=== PATIENT | male | born 1970 | race American Indian/Alaskan Native ===

== ENCOUNTER 2016-10-30 11:07 | Inpatient (IN) | payer MEDICARE ==
--- NOTE | 2016-10-30 12:39 | Emergency Department Report ---
Chief Complaint: Syncope Stated Complaint: PREV PASS OUT/LT LEG PAIN Time Seen by Provider: 10/30/16 12:34 - HPI History of Present Illness: 46-year-old -[place] male comes in for passing out at home. Patient reports that he thinks he was out for half an hour. He reports no past medical history. He also complains of left leg pain 1 month. Denies trauma to the leg. - Exam Vital Signs: Vital Signs 10/30/16 11:59 Temperature 98.1 F Pulse Rate 65 Respiratory 18 Rate Blood Pressure 139/102 O2 Sat by Pulse 99 Oximetry Physical Exam: Vital sign bp repeated 143/97. Patient's alert and oriented 3. Cardiovascular S1-S2 regular rate and rhythm respiratory clear to auscultation bilateral MSE screening note: Focused history and physical exam performed. Due to findings the following was ordered: Patient seen by the [facility] provider. He'll be seen in the main ER. ED Disposition for MSE Condition: Stable
[2016-10-30 13:12] LABS: Hematocrit 42.2 % (35.5-45.6); Hemoglobin 13.9 gm/dl (11.8-15.2); Mean Corpuscular HGB Conc 33 % (32-34); Mean Corpuscular Hemoglobin 30 pg (28-32); Mean Corpuscular Volume 91 fl (84-94); Platelet Count 225 K/mm3 (140-440); Red Blood Count 4.66 M/mm3 (3.65-5.03); Red Cell Distribution Width 14.5 % (13.2-15.2); White Blood Count 4.9 K/mm3 (4.5-11.0)
[2016-10-30 13:33] LABS: Anion Gap 17 mmol/L; BUN/Creatinine Ratio 18.75; Blood Urea Nitrogen 15 mg/dL (9-20); Calcium 9.2 mg/dL (8.4-10.2); Carbon Dioxide 26 mmol/L (22-30); Chloride 103.4 mmol/L (98-107); Glucose 96 mg/dL (75-100); Potassium 4.5 mmol/L (3.6-5.0); Sodium 142 mmol/L (137-145)
--- NOTE | 2016-10-30 20:46 | Emergency Department Report ---
ED Syncope HPI - General Chief Complaint: Syncope Stated Complaint: PREV PASS OUT/LT LEG PAIN Time Seen by Provider: 10/30/16 12:34 Source: patient Exam Limitations: no limitations - History of Present Illness Initial Comments: 46-year-old male with past medical history asthma presents to the hospital complains of multiple syncopal episodes in the past 2 months including today. Patient states he was walking, had no preceding symptoms, then passed out for approximately 30 minutes. Patient denies any symptoms at this time. He denies headache blurred vision, chest pain, shortness of breath, palpitations, abdominal pain, nausea, vomiting, diarrhea, melena, hematochezia, focal weakness or numbness. Patient denies tongue laceration/biting or urinary incontinence. Patient has had at least 3 episodes of the past 2 months. His understanding after talking to his primary care doctor that this is caused by nutrient deficits and occurs when his potassium is low. Patient also complains of intermittent sharp pain to medial left thigh for the past one month but denies recent travel, calf tenderness, leg asymmetry, or history of PE/DVT. - Related Data Allergies/Adverse Reactions: Allergies Penicillins Allergy (Verified 02/07/16 14:58) Unknown Home Medications: Ambulatory Orders Loratadine [Claritin] 10 mg PO DAILY #30 tablet 11/05/15 Prednisone [predniSONE 10 mg (6-Day Pack, 21 Tabs)] 10 mg PO .TAPER #1 tab.ds.pk 11/05/15 hydrOXYzine HCL [Atarax] 25 mg PO Q6HR PRN #20 tablet 11/05/15 ED Review of Systems ROS: Stated complaint: PREV PASS OUT/LT LEG PAIN Other details as noted in HPI Comment: All other systems reviewed and negative Other: Constitutional: No fevers chills Eyes: No eye pain visual changes ENT: No ear pain or throat pain Neck: Denies pain Respiratory: Denies cough wheezing shortness of breath Cardiovascular: Denies chest pain, palpitations, syncope GI: Denies abdominal pain, nausea, vomiting, diarrhea : Denies dysuria Musculoskeletal: Denies back pain Skin: Denies rash, lesions, erythema Neurologic: Denies headache, numbness, weakness Psychiatric: Denies suicidal ideation, hallucinations ED Past Medical Hx - Past Medical History Hx Headaches / Migraines: Yes Hx Asthma: Yes - Surgical History Additional Surgical History: finger - Social History Smoking Status: Current Every Day Smoker Substance Use Type: None - Medications Home Medications: Home Medications Medication Instructions Recorded Confirmed Last Taken Type Loratadine [Claritin] 10 mg PO DAILY #30 tablet 11/05/15 Unknown Rx Prednisone [predniSONE 10 mg 10 mg PO .TAPER #1 tab.ds.pk 11/05/15 Unknown Rx (6-Day Pack, 21 Tabs)] hydrOXYzine HCL [Atarax] 25 mg PO Q6HR PRN #20 tablet 11/05/15 Unknown Rx ED Physical Exam - General Limitations: No Limitations - Other Other exam information: General: No limitations, patient is alert in no acute distress Head exam: Atraumatic, normocephalic Eyes exam: Normal appearance, pupils equal reactive to light, extraocular movements intact ENT: Moist mucous membrane, normal oropharynx Neck exam: Normal inspection, full range of motion, no meningismus nontender Respiratory exam: Clear to auscultation bilateral, no wheezes, rales, crackles Cardiovascular: Normal rate and rhythm, normal heart sounds Abdomen: Soft, nondistended, and nontender, with normal bowel sounds, no rebound, or guarding Extremity: Full range of motion normal inspection no deformity, no calf tenderness or edema. 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 Will admit for cardiac workup after ED workup complete ED Medical Decision Making - Lab Data Result diagrams: 10/30/16 12:59 10/30/16 12:59 Lab Results 10/30/16 10/30/16 10/30/16 Range/Units 12:59 12:59 20:47 WBC 4.9 (4.5-11.0) K/mm3 RBC 4.66 (3.65-5.03) M/mm3 Hgb 13.9 (11.8-15.2) gm/dl Hct 42.2 (35.5-45.6) % MCV 91 (84-94) fl MCH 30 (28-32) pg MCHC 33 (32-34) % RDW 14.5 (13.2-15.2) % Plt Count 225 (140-440) K/mm3 D-Dimer < 135 (0-234) ng/mlDDU Sodium 142 (137-145) mmol/L Potassium 4.5 (3.6-5.0) mmol/L Chloride 103.4 (98-107) mmol/L Carbon Dioxide 26 (22-30) mmol/L Anion Gap 17 mmol/L BUN 15 (9-20) mg/dL Creatinine 0.8 (0.8-1.5) mg/dL Estimated GFR > 60 ml/min BUN/Creatinine Ratio 18.75 % Glucose 96 (75-100) mg/dL Calcium 9.2 (8.4-10.2) mg/dL Urine Opiates Screen Urine Methadone Screen Ur Barbiturates Screen Ur Phencyclidine Scrn Ur Amphetamines Screen U Benzodiazepines Scrn Urine Cocaine Screen U Marijuana (THC) Screen Drugs of Abuse Note 10/30/16 Range/Units Unknown WBC (4.5-11.0) K/mm3 RBC (3.65-5.03) M/mm3 Hgb (11.8-15.2) gm/dl Hct (35.5-45.6) % MCV (84-94) fl MCH (28-32) pg MCHC (32-34) % RDW (13.2-15.2) % Plt Count (140-440) K/mm3 D-Dimer (0-234) ng/mlDDU Sodium (137-145) mmol/L Potassium (3.6-5.0) mmol/L Chloride (98-107) mmol/L Carbon Dioxide (22-30) mmol/L Anion Gap mmol/L BUN (9-20) mg/dL Creatinine (0.8-1.5) mg/dL Estimated GFR ml/min BUN/Creatinine Ratio % Glucose (75-100) mg/dL Calcium (8.4-10.2) mg/dL Urine Opiates Screen Presumptive negative Urine Methadone Screen Presumptive negative Ur Barbiturates Screen Presumptive negative Ur Phencyclidine Scrn Presumptive negative Ur Amphetamines Screen Presumptive negative U Benzodiazepines Scrn Presumptive negative Urine Cocaine Screen Presumptive negative U Marijuana (THC) Screen Presumptive negative Drugs of Abuse Note Disclamer - EKG Data -: EKG Interpreted by Me (rate 71 inc rbbb) - EKG Data When compared to previous EKG there are: no significant change (compared to 06/2014) - Radiology Data Radiology results: report reviewed (CT head: No acute findings) - Medical Decision Making D-dimer is negative. CT and labs are unremarkable. We'll admit to the hospital for further cardiac evaluation given repeated syncopal episodes - Differential Diagnosis PE, heart abnormality, arrhythmia, intracranial abnormality, seizure Critical Care Time: No Critical care attestation.: If time is entered above; I have spent that time in minutes in the direct care of this critically ill patient, excluding procedure time. ED Disposition Clinical Impression: Syncope Disposition: OP ADMITTED IP TO THIS HOSP Is pt being admited?: Yes Condition: Stable Time of Disposition: 22:12 (Dr Rice/hosp)
[2016-10-30 21:11] LABS: Urine Drugs of Abuse Note Disclamer
[2016-10-30] MEDS ORDERED: ZOFRAN IV PRN (23:02)
[2016-10-30] MEDS ORDERED: TYLENOL PO PRN (23:02)
[2016-10-30] MEDS ORDERED: PERCOCET 5/325 PO PRN (23:02)
[2016-10-30] MEDS ORDERED: DULCOLAX PR PRN (23:02)
[2016-10-30] MEDS ORDERED: MILK OF MAGNESIA PO PRN (23:02)
--- NOTE | 2016-10-30 23:05 | History and Physical Report ---
History of Present Illness Date of examination: 10/30/16 Date of admission: 10/30/16 22:12 History of present illness: 46-year-old man history of migraine, asthma comes emergency room with complaints of recurrent syncope. Patient stated yesterday he felt dizzy and passed out for about 30 minutes. This is the second time passing out since September. He been having recurrent syncope since 2004, usually passed out at least 2 times a year. He is a stress test in 2004, never had monitor. Patient denies chest pain, palpitation, shortness of breath, cough, abdominal pain, hematochezia, dysuria, frequency, focal weakness, dysarthria, fever chills , polydipsia polyuria, hot or cold intolerance, easy bruisability, or rash or bleeding from mucosal membrane, rhinorrhea, epistaxis, earache, tinnitus, blurry vision, eye discharge, anxiety, depression. Other review of systems negative PAST SURGICAL HISTORY: Surgery on toe SOCIAL HISTORY: Denies alcohol, admits to tobacco, no drugs FAMILY HISTORY: Hypertension Medications and Allergies Allergies Allergy/AdvReac Type Severity Reaction Status Date / Time Penicillins Allergy Unknown Verified 02/07/16 14:58 Home Medications Medication Instructions Recorded Confirmed Last Taken Type Loratadine [Claritin] 10 mg PO DAILY #30 tablet 11/05/15 Unknown Rx Prednisone [predniSONE 10 mg 10 mg PO .TAPER #1 tab.ds.pk 11/05/15 Unknown Rx (6-Day Pack, 21 Tabs)] hydrOXYzine HCL [Atarax] 25 mg PO Q6HR PRN #20 tablet 11/05/15 Unknown Rx Exam - Physical Exam Narrative exam: Gen. appearance: Patient lying in bed, no apparent distress HEENT: Normocephalic, atraumatic, pupils equally round and reactive to light, extraocular movement intact, and no sclericterus,. No JVD or thyromegaly or nodule,neck supple, no carotid bruit ,mucous membranes moist, no exudate or erythema Heart: S1, S2, regular rate and rhythm Lungs: Clear to auscultation bilaterally, breathing comfortable Abdomen: Positive bowel sounds, nontender, nondistended, no organomegaly Extremity: No edema, cyanosis, clubbing Skin: No rash, nodules, warm, dry Neuro: Oriented 3, cranial nerves II-12 intact, speech is fluent, motor and sensory intact - Constitutional Vitals: Temp Pulse Resp BP Pulse Ox 98 F 77 16 139/91 100 10/30/16 19:54 10/30/16 19:54 10/30/16 19:54 10/30/16 19:54 10/30/16 19:54 Results - Labs CBC & Chem 7: 10/30/16 12:59 10/30/16 12:59 - Imaging and Cardiology EKG: image reviewed CT Scan - head: report reviewed Assessment and Plan Current syncope Asthma Migraine Admits medicine Check cardiac enzymes, orthostatics, stress test Consult cardiology, start DVT prophylaxis
--- NOTE | 2016-10-30 23:23 | Admit Criteria Form ---
Admission Criteria Documentation: SYNCOPE Clinical Indications for Admission to Inpatient Care ( Place 'X' for any and all applicable criteria): Admission is indicated for syncope and ANY ONE of the following (1)(2)(3)(4)(5) (6)(7) : [ X]I. Inpatient admission required rather than observation care (Also use Syncope: Observation Care Criteria as appropriate) because of ANY ONE of the following: [ ]a) Hemodynamic instability that is severe or persistent [ ]b) Cardiac arrhythmias of immediate concern identified or strongly suspected (eg, needs electrophysiologic study) [ ]c) Acute coronary syndrome identified (Also use Myocardial Infarction or Angina Criteria form ) [ ]d) Structural cardiac disorder (eg, aortic stenosis) suspected as cause that requires immediate correction [ ]e) Respiratory symptoms (eg, dyspnea, tachypnea) that are severe or persistent [ ]f) Neurologic signs or symptoms that are severe or persistent ( eg, stroke, seizures, altered mental status) [ ]g) Severe electrolyte abnormalities requiring inpatient care [ ]h) Supplemental oxygen or respiratory treatment for over 24 hrs that are performable only in acute inpatient setting [ ]i) IV fluid to replace significant ongoing (eg, for over 24 hrs ) losses (>3 L/m2 per day) [ ]j) Continuous intravenous infusion of anticoagulation, platelet inhibitor, vasoactive, or antiarrhythmic medication(15)(16) [ ]k) Pulmonary artery catheter monitoring [ ]l) Temporary pacemaker placement(17) [ ]m) Emergent cardioversion(18) [X ]n) Other conditions, treatment or monitoring requiring inpatient admission [ ]II. Suspicion of imminently dangerous cause (eg, rare causes like pericardial tamponade, pulmonary embolism) [ ]III. Syncope causing severe injury requiring hospitalization Extended stay beyond goal length of stay may be needed for(28) [ ]a) Dangerous arrhythmia(15)(23)(27)(29) [ ]b) Myocardial ischemia [ ]c) Seizure disorder [ ]d) Syncope-related injuries The original [employer] content created by [employer] has been revised. The portions of the content which have been revised are identified through the use of italic text or in bold, and [employer] has neither reviewed nor approved the modified material. All other unmodified content is copyright [employer] [facility] [employer]. Please see references footnoted in the original [facility] edition 2016 Admission Criteria Met: Yes
[2016-10-31 00:22] LABS: Creatine Kinase MB 2.4 ng/mL (0.0-4.0)
[2016-10-31 00:23] LABS: Creatine Kinase 135 units/L (55-170)
[2016-10-31 03:45] LABS: Basophils % (Auto) 0.7 % (0.0-1.8); Eosinophils % (Auto) 3.9 % (0.0-4.3); Hematocrit 43.1 % (35.5-45.6); Hemoglobin 13.9 gm/dl (11.8-15.2); Mean Corpuscular HGB Conc 32 % (32-34); Mean Corpuscular Hemoglobin 29 pg (28-32); Mean Corpuscular Volume 91 fl (84-94); Platelet Count 231 K/mm3 (140-440); Red Blood Count 4.74 M/mm3 (3.65-5.03); Red Cell Distribution Width 14.5 % (13.2-15.2); White Blood Count 7.1 K/mm3 (4.5-11.0)
[2016-10-31 03:58] LABS: Anion Gap 18 mmol/L; BUN/Creatinine Ratio 23.75; Blood Urea Nitrogen 19 mg/dL (9-20); Calcium 8.9 mg/dL (8.4-10.2); Carbon Dioxide 24 mmol/L (22-30); Chloride 104.2 mmol/L (98-107); Glucose 94 mg/dL (75-100); Potassium 4.3 mmol/L (3.6-5.0); Sodium 142 mmol/L (137-145)
[2016-10-31 06:36] LABS: Creatine Kinase 122 units/L (55-170)
[2016-10-31] MEDS ORDERED: LEXISCAN IV ONE ×2 (08:02→08:16)
--- NOTE | 2016-10-31 11:58 | Consultation ---
History of Present Illness Consult date: 10/31/16 Medications and Allergies Allergies Allergy/AdvReac Type Severity Reaction Status Date / Time Penicillins Allergy Unknown Verified 02/07/16 14:58 Home Medications Medication Instructions Recorded Confirmed Last Taken Type Loratadine [Claritin] 10 mg PO DAILY #30 tablet 11/05/15 Unknown Rx Prednisone [predniSONE 10 mg 10 mg PO .TAPER #1 tab.ds.pk 11/05/15 Unknown Rx (6-Day Pack, 21 Tabs)] hydrOXYzine HCL [Atarax] 25 mg PO Q6HR PRN #20 tablet 11/05/15 Unknown Rx Active Meds: Active Medications Acetaminophen (Tylenol) 650 mg PO Q4H PRN PRN Reason: Pain MILD(1-3)/Fever >100.5/JONES Bisacodyl (Dulcolax) 10 mg CA QDAY PRN PRN Reason: Constipation unrelieved by MOM Magnesium Hydroxide (Milk Of Magnesia) 30 ml PO Q4H PRN PRN Reason: Constipation Ondansetron HCl (Zofran) 4 mg IV Q8H PRN PRN Reason: N/V unrelieved by Reglan Oxycodone/Acetaminophen (Percocet 5/325) 1 tab PO Q6H PRN PRN Reason: Pain, Moderate (4-6) Physical Examination Vital Signs Temp Pulse Resp BP Pulse Ox 98.1 F 65 18 139/102 99 10/30/16 11:59 10/30/16 11:59 10/30/16 11:59 10/30/16 11:59 10/30/16 11:59 Results 10/31/16 02:55 10/31/16 02:55 Cardiac Enzymes 10/30/16 10/31/16 Range/Units 23:33 05:42 CK-MB (CK-2) 2.4 2.0 (0.0-4.0) ng/mL CBC 10/31/16 Range/Units 02:55 WBC 7.1 (4.5-11.0) K/mm3 RBC 4.74 (3.65-5.03) M/mm3 Hgb 13.9 (11.8-15.2) gm/dl Hct 43.1 (35.5-45.6) % Plt Count 231 (140-440) K/mm3 Lymph # 3.0 (1.2-5.4) K/mm3 [place] # 0.8 (0.0-0.8) K/mm3 Eos # 0.3 (0.0-0.4) K/mm3 Baso # 0.1 (0.0-0.1) K/mm3 Comprehensive Metabolic Panel 10/31/16 Range/Units 02:55 Sodium 142 (137-145) mmol/L Potassium 4.3 (3.6-5.0) mmol/L Chloride 104.2 (98-107) mmol/L Carbon Dioxide 24 (22-30) mmol/L BUN 19 (9-20) mg/dL Creatinine 0.8 (0.8-1.5) mg/dL Glucose 94 (75-100) mg/dL Calcium 8.9 (8.4-10.2) mg/dL Assessment and Plan full consult dictated echo staff not available today stress mpi wnl check carotid d/c if tte ok (prob tomorrow)
--- NOTE | 2016-10-31 12:47 | Treadmill Report ---
NUCLEAR PERFUSION SCAN REFERRING PHYSICIAN: Hospitalist service. PROTOCOL: The patient was brought to the stress lab in a postabsorptive state, given 10 mCi of technetium 99m at rest. The patient underwent rest imaging. The patient underwent Lexiscan stress test. At peak stress, the patient was given 26 mCi of technetium 99m. Shortly thereafter, the patient underwent stress imaging. Raw imaging reveals mild GI artifact. No significant motion artifact. SPECT imaging examined carefully in the horizontal long axis, vertical long axis, and short axis views. There is normal homogenous uptake of radioisotope in all reported segments. No evidence of a significant fixed or reversible perfusion defects suggestive of prior infarction or ischemia. Gated wall motion reveals normal systolic thickening, calculated ejection fraction of 51%. No TID. CONCLUSIONS: 1. Normal myocardial perfusion scan without evidence of active ischemia or prior infarction. 2. Normal left ventricular systolic performance without evidence of transient ischemic dilatation or stress-induced segmental wall motion abnormalities. JOB# [id number] MALINA/VENUS
--- NOTE | 2016-10-31 15:50 | Progress Note ---
Assessment and Plan Assessment and plan: 1. Syncope likely vasovagal, MPI wnl, fup TTE tomorrow check carotid dopplers 2. Asthma stable 3 Hx of Migraine JONES not in exacerbation Hospitalist Physical - Constitutional Vitals: Temp Pulse Resp BP Pulse Ox 98.3 F 67 18 107/77 95 10/31/16 15:44 10/31/16 15:44 10/31/16 15:44 10/31/16 15:44 10/31/16 15:44 Results - Labs CBC & Chem 7: 10/31/16 02:55 10/31/16 02:55 Labs: Laboratory Last Values WBC 7.1 K/mm3 (4.5-11.0) 10/31/16 02:55 RBC 4.74 M/mm3 (3.65-5.03) 10/31/16 02:55 Hgb 13.9 gm/dl (11.8-15.2) 10/31/16 02:55 Hct 43.1 % (35.5-45.6) 10/31/16 02:55 MCV 91 fl (84-94) 10/31/16 02:55 MCH 29 pg (28-32) 10/31/16 02:55 MCHC 32 % (32-34) 10/31/16 02:55 RDW 14.5 % (13.2-15.2) 10/31/16 02:55 Plt Count 231 K/mm3 (140-440) 10/31/16 02:55 Lymph % (Auto) 42.6 % (13.4-35.0) H 10/31/16 02:55 [place] % (Auto) 11.6 % (0.0-7.3) H 10/31/16 02:55 Eos % (Auto) 3.9 % (0.0-4.3) 10/31/16 02:55 Baso % (Auto) 0.7 % (0.0-1.8) 10/31/16 02:55 Lymph # 3.0 K/mm3 (1.2-5.4) 10/31/16 02:55 [place] # 0.8 K/mm3 (0.0-0.8) 10/31/16 02:55 Eos # 0.3 K/mm3 (0.0-0.4) 10/31/16 02:55 Baso # 0.1 K/mm3 (0.0-0.1) 10/31/16 02:55 Seg Neutrophils % 41.2 % (40.0-70.0) 10/31/16 02:55 Seg Neutrophils # 2.9 K/mm3 (1.8-7.7) 10/31/16 02:55 D-Dimer < 135 ng/mlDDU (0-234) 10/30/16 20:47 Sodium 142 mmol/L (137-145) 10/31/16 02:55 Potassium 4.3 mmol/L (3.6-5.0) 10/31/16 02:55 Chloride 104.2 mmol/L (98-107) 10/31/16 02:55 Carbon Dioxide 24 mmol/L (22-30) 10/31/16 02:55 Anion Gap 18 mmol/L 10/31/16 02:55 BUN 19 mg/dL (9-20) 10/31/16 02:55 Creatinine 0.8 mg/dL (0.8-1.5) 10/31/16 02:55 Estimated GFR > 60 ml/min 10/31/16 02:55 BUN/Creatinine Ratio 23.75 % 10/31/16 02:55 Glucose 94 mg/dL (75-100) 10/31/16 02:55 Calcium 8.9 mg/dL (8.4-10.2) 10/31/16 02:55 Total Creatine Kinase 122 units/L (55-170) 10/31/16 05:42 CK-MB (CK-2) 2.0 ng/mL (0.0-4.0) 10/31/16 05:42 CK-MB (CK-2) Rel Index 1.6 (0-4) 10/31/16 05:42 Troponin T < 0.010 ng/mL (0.00-0.029) 10/31/16 05:42 Urine Opiates Screen Presumptive negative 10/30/16 Unknown Urine Methadone Screen Presumptive negative 10/30/16 Unknown Ur Barbiturates Screen Presumptive negative 10/30/16 Unknown Ur Phencyclidine Scrn Presumptive negative 10/30/16 Unknown Ur Amphetamines Screen Presumptive negative 10/30/16 Unknown U Benzodiazepines Scrn Presumptive negative 10/30/16 Unknown Urine Cocaine Screen Presumptive negative 10/30/16 Unknown U Marijuana (THC) Screen Presumptive negative 10/30/16 Unknown Drugs of Abuse Note Disclamer 10/30/16 Unknown
--- NOTE | 2016-11-01 00:30 | Consultation ---
REFERRING PHYSICIAN: Addie Rice MD REASON FOR CONSULTATION: Advice and opinion regarding questionable syncope. HISTORY OF PRESENT ILLNESS: The patient is a very pleasant 46-year-old gentleman with a history of migraine and recurrent syncope, has several episodes a year. Denies any chest pain or shortness of breath. States he does feel funny beforehand. There is prodrome present. He feels better since he has been in the hospital. No fevers, chills, nausea, vomiting. No recent illness. History of foot surgery. No cardiac history. Unclear if he has had a workup in the past. SOCIAL HISTORY: Does smoke, nondrinker, no drugs. FAMILY HISTORY: Hypertension. No premature family history of sudden cardiac . ALLERGIES: ALLERGIC TO PENICILLIN. MEDICATIONS: Inpatient and outpatient medications reviewed. PHYSICAL EXAMINATION: VITAL SIGNS: Telemetry is unremarkable, sinus rhythm in 60s. Blood pressures 120s/70s. He is afebrile. O2 sat is 98% on room air. GENERAL: This is a middle-aged male in no apparent distress, oriented x 3. HEENT: Sclerae are anicteric. PERRL. NECK: Supple, no masses. CHEST: Clear to auscultation bilaterally. Good air movement. CARDIOVASCULAR: Regular rate and rhythm. Normal S1, S2. ABDOMEN: Soft, nontender, nondistended. Normoactive bowel sounds in 4 quadrants. No mass or bruits. EXTREMITIES: No cyanosis, clubbing, edema. Good peripheral pulses. SKIN: Warm, dry, and intact. No rashes. LABORATORY DATA: EKG reveals normal sinus rhythm. First 2 sets of troponins are negative. WBC ____, hemoglobin 13.9, hematocrit 43.1, platelets 231. D-dimer is negative. BMP is normal. UDS is normal. Had a stress thallium this morning, which revealed no ischemia or prior infarction, normal LV function, no ____. ASSESSMENT: In summary, the patient is a pleasant 46-year-old gentleman: 1. Recurrent syncope with prodrome unclear etiology. Telemetry thus far unremarkable. Stress test is normal. Follow up echocardiogram. We will check orthostatics stable from a cardiac standpoint at this point. Thank you for this consultation. We will be happy following along with you. JOB# [id number] SBM/NTS
--- NOTE | 2016-11-01 11:45 | Progress Note ---
Assessment and Plan await tte stress mpi wnl check carotid stable cv status will need outpt neuro eval for syncope of unknown etiology Subjective Date of service: 11/01/16 Interval history: no complaints very pleasant Objective Vital Signs Temp Pulse Pulse Resp BP Pulse Ox 11/01/16 10:23 63 11/01/16 10:00 18 11/01/16 07:37 97.5 F L 64 18 113/79 95 11/01/16 04:54 98.2 F 84 18 110/68 100 11/01/16 00:32 97.6 F 74 20 124/68 96 10/31/16 20:14 98.2 F 64 18 126/82 93 10/31/16 19:42 62 10/31/16 15:44 98.3 F 67 18 107/77 95 10/31/16 12:07 58 L - Imaging and Cardiology EKG: image reviewed
[2016-11-01 12:36] VITALS: BP 116/82
--- NOTE | 2016-11-01 13:37 | Discharge Summary ---
Providers - Providers Date of Admission: 10/30/16 22:12 Attending physician: TESSIE FREEMAN MD 10/30/16 22:15 Consult to Physician [CONS] Urgent Consulting Provider: JESS BERNARDO Reason For Exam: recurrent syncope Notified:: y Primary care physician: DARSHAN GARCIA Hospitalization Condition: Stable Core Measure Documentation - Palliative Care Palliative Care/ Comfort Measures: Not Applicable Exam - Constitutional Vitals: Temp Pulse Resp BP Pulse Ox 97.3 F L 62 18 116/82 96 11/01/16 12:35 11/01/16 12:35 11/01/16 12:35 11/01/16 12:35 11/01/16 12:35 Plan Follow up with: DARSHAN GARCIA MD [Primary Care Provider] - 7 Days BLADIMIR PADILLA MD [Staff Physician] - 7 Days
--- NOTE | 2016-11-02 18:15 | Cat Scan Report ---
FINAL REPORT EXAM: CT HEAD/BRAIN WO CON HISTORY: recurrent syncope TECHNIQUE: CT imaging acquired through the head without intravenous contrast. Transaxial reformations are provided. PRIORS: None. FINDINGS: Mild parenchymal volume loss is above what would normally be expected in a patient of this age. No intraparenchymal or extra-axial mass, hemorrhage, or mass effect. [place] and white-matter differentiation is within normal limits. Normal spherical shape of the globes. Paranasal sinuses and mastoid air cells are clear. No skull or facial fracture visualized. IMPRESSION: No acute intracranial abnormality. Mild parenchymal volume loss is above would normally be expected in a patient of this age. Follow-up MRI and possible neurology consultation are suggested.
== END 2016-11-01 15:06 | disposition home or self-care (01) | DRG 312 ==
LOC: ED 11:07 → 4A 22:12
PROVIDERS: ADMIT Internal Medicine; ATTEND Internal Medicine
DX: R55 Syncope and collapse (principal); J45.909 Unspecified asthma, uncomplicated; G43.909 Migraine, unspecified, not intractable, without status migrainosus; Z88.0 Allergy status to penicillin; Z82.49 Family history of ischemic heart disease and other diseases of the circulatory system
CPT/HCPCS: 36415; 70450; 78452; 80048; 80307; 82550; 82553; 84484; 85025; 85027; 85379; 93005; 93010; 93017; 93880; 99406; A9502; J2785

== ENCOUNTER 2017-07-30 15:00 | Emergency (ER) | payer MEDICARE ==
[2017-07-30 15:23] VITALS: BP 143/97
[2017-07-30] MEDS ORDERED: TYLENOL #3 PO ONE (18:06)
--- NOTE | 2017-07-30 18:10 | Emergency Department Report ---
ED ENT HPI - General Chief complaint: Dental/Oral Stated complaint: TOOTHACHE Source: patient Mode of arrival: Ambulatory Limitations: No Limitations - Related Data Previous Rx's Medication Instructions Recorded Last Taken Type Acetaminophen/Codeine [Tylenol 1 tab PO Q6H PRN #8 tab 07/30/17 Unknown Rx /Codeine # 3 tab] Clindamycin [Clindamycin CAP] 300 mg PO Q6H #28 capsule 07/30/17 Unknown Rx Ibuprofen [Motrin] 800 mg PO Q8HR PRN #30 tablet 07/30/17 Unknown Rx Allergies Allergy/AdvReac Type Severity Reaction Status Date / Time Penicillins Allergy Unknown Verified 02/07/16 14:58 ED Dental HPI - General Chief complaint: Dental/Oral Stated complaint: TOOTHACHE Source: patient Mode of arrival: Ambulatory Limitations: No Limitations - Related Data Previous Rx's Medication Instructions Recorded Last Taken Type Acetaminophen/Codeine [Tylenol 1 tab PO Q6H PRN #8 tab 07/30/17 Unknown Rx /Codeine # 3 tab] Clindamycin [Clindamycin CAP] 300 mg PO Q6H #28 capsule 07/30/17 Unknown Rx Ibuprofen [Motrin] 800 mg PO Q8HR PRN #30 tablet 07/30/17 Unknown Rx Allergies Allergy/AdvReac Type Severity Reaction Status Date / Time Penicillins Allergy Unknown Verified 02/07/16 14:58 ED Review of Systems ROS: Stated complaint: TOOTHACHE Other details as noted in HPI ED Past Medical Hx - Past Medical History Hx Headaches / Migraines: Yes Hx Asthma: Yes - Surgical History Additional Surgical History: finger - Social History Smoking Status: Current Every Day Smoker Substance Use Type: None - Medications Home Medications: Home Medications Medication Instructions Recorded Confirmed Last Taken Type Acetaminophen/Codeine [Tylenol 1 tab PO Q6H PRN #8 tab 07/30/17 Unknown Rx /Codeine # 3 tab] Clindamycin [Clindamycin CAP] 300 mg PO Q6H #28 capsule 07/30/17 Unknown Rx Ibuprofen [Motrin] 800 mg PO Q8HR PRN #30 tablet 07/30/17 Unknown Rx ED Physical Exam - General Limitations: No Limitations ED Course Vital Signs 07/30/17 15:20 Temperature 98.3 F Pulse Rate 70 Respiratory 20 Rate Blood Pressure 143/97 O2 Sat by Pulse 98 Oximetry ED Medical Decision Making - Medical Decision Making A/P: dental cavities, toothache, 1- Motrin when necessary, clindamycin course, Orajel when necessary, Peridex mouthwash daily basis, short course codeine when necessary 2- I provided patient with information for multiple dental clinics to follow up and stressed the importance of dental follow-up as he has a dental cavity that requires dental fixation or instrumentation 3- no clinical signs of facial abscess, no Akira's angina, no induration or cellulitis of floor of mouth or tongue 4- patient able to tolerate by mouth before discharge 5- no signs of facial infection. Advised patient that if he does not take antibiotics with follow-up with a dentist as soon as possible that a can result in potentially serious or dangerous infection to develop in jaw or face. Patient states that he understood these instructions. I advised patient to return to the ED for any persistent unrelenting nausea or vomiting fever or chills or headaches. Critical care attestation.: If time is entered above; I have spent that time in minutes in the direct care of this critically ill patient, excluding procedure time. ED Disposition Clinical Impression: Dental cavity, Toothache Disposition: TO HOME OR SELFCARE Is pt being admited?: No Does the pt Need Aspirin: No Condition: Stable Instructions: Dental Caries (ED), Toothache (ED) Prescriptions: Acetaminophen/Codeine [Tylenol /Codeine # 3 tab] 1 tab PO Q6H PRN #8 tab PRN Reason: Pain Clindamycin [Clindamycin CAP] 300 mg PO Q6H #28 capsule Ibuprofen [Motrin] 800 mg PO Q8HR PRN #30 tablet PRN Reason: Toothache Referrals: [facility] [place] [Outside] - 3-5 Days Forms: Work/School Release Form(ED) Time of Disposition: 18:07
== END 2017-07-30 18:27 | disposition home or self-care (01) ==
LOC: ED 15:00
DX: K08.89 Other specified disorders of teeth and supporting structures (principal); K02.9 Dental caries, unspecified; F17.200 Nicotine dependence, unspecified, uncomplicated; Z88.0 Allergy status to penicillin; G43.909 Migraine, unspecified, not intractable, without status migrainosus
CPT/HCPCS: 99282

== ENCOUNTER 2019-01-03 09:48 | Emergency (ER) | payer MEDICARE ==
[2019-01-03 10:25] VITALS: BP 149/82
--- NOTE | 2019-01-03 11:06 | XRay Report ---
RIGHT FINGERS, 3 VIEWS History: Pain. Findings: A bandage is in place over the distal right index finger. The bony structures are intact. No evidence for fracture, periostitis or bone lesion. No joint pathology is appreciated. The soft tissues are unremarkable. Impression: Unremarkable right fingers.
--- NOTE | 2019-01-03 12:45 | Emergency Department Report ---
HPI - General Chief Complaint: Extremity Injury, Upper Time Seen by Provider: 01/03/19 12:19 - HPI HPI: Patient is a 48-year-old male who presents to ED today complaining of right first digit pain. Patient states that 2 days ago after putting on his shoes he thinks he injured his right hand finger. Patient denies any trauma to the finger. Patient states she's been throbbing and aching since Wednesday. He denies all of the symptoms. ED Past Medical Hx - Past Medical History Previous Medical History?: Yes Hx Headaches / Migraines: Yes Hx Asthma: Yes - Surgical History Past Surgical History?: Yes Additional Surgical History: finger - Social History Smoking Status: Current Every Day Smoker - Medications Home Medications: Home Medications Medication Instructions Recorded Confirmed Last Taken Type Acetaminophen/Codeine [Tylenol 1 tab PO Q6H PRN #8 tab 07/30/17 Unknown Rx /Codeine # 3 tab] Clindamycin [Clindamycin CAP] 300 mg PO Q6H #28 capsule 07/30/17 Unknown Rx Ibuprofen [Motrin 800 MG tab] 800 mg PO Q8HR PRN #30 tablet 01/03/19 Unknown Rx ED Review of Systems ROS: Stated complaint: RT FINGER INJURED/PAIN Other details as noted in HPI Comment: All other systems reviewed and negative Physical Exam - Physical Exam Vital Signs: Vital Signs 01/03/19 10:23 Temperature 98.5 F Pulse Rate 66 Respiratory 18 Rate Blood Pressure 149/82 [Right] O2 Sat by Pulse 100 Oximetry Physical Exam: GENERAL: Alert and oriented x3, no apparent distress, Normal Gait, atraumatic. HEAD: Head is normocephalic and a-traumatic. HEART: S1, S2 present, regular rate and rhythm without murmur, no rubs, no gallops. Non tender to palpation EXTREMITIES/MUSCULOSKELETAL: No cyanosis, clubbing, rash, lesions or edema to fingers bilaterally. Full ROM bilaterally. Radial Pulses 2+ bilaterally. UE 5+ strength bilaterally, NEUROLOGIC: The patient is cooperative with no focal neurologic deficits, Normal speech. Normal sensation in bilateral upper and lower extremities, No loss of sensation, SKIN: Warm and dry, No lesions, No ulceration or induration present. ED Course Vital Signs 01/03/19 10:23 Temperature 98.5 F Pulse Rate 66 Respiratory 18 Rate Blood Pressure 149/82 [Right] O2 Sat by Pulse 100 Oximetry ED Medical Decision Making - Radiology Data Radiology results: report reviewed, image reviewed History: Pain. Findings: A bandage is in place over the distal right index finger. The bony structures are intact. No evidence for fracture, periostitis or bone lesion. No joint pathology is appreciated. The soft tissues are unremarkable. Impression: Unremarkable right fingers. Transcribed By: TTR Dictated By: AILYN COLLAZO JR, MD Electronically Authenticated By: AILYN COLLAZO JR, MD Signed Date/Time: 01/03/19 1101 - Medical Decision Making 48-year-old male presents with right first digit pain status post injury 2 days ago. X-ray shows no acute deformity fracture or dislocation. Discussed findings with the patient. Discussed the patient in follow-up Department care physician. Upon my examination no signs of deformity or broken bones. Critical care attestation.: If time is entered above; I have spent that time in minutes in the direct care of this critically ill patient, excluding procedure time. ED Disposition Clinical Impression: Pain in right finger(s) Disposition: - TO HOME OR SELFCARE Is pt being admited?: No Does the pt Need Aspirin: No Condition: Stable Instructions: Arthralgia (ED) Additional Instructions: Make sure to follow up with the primary care physician as discussed. Take all your medications as you've been prescribed. If you have any worsening symptoms or develop new symptoms please return to ED immediately. Prescriptions: Ibuprofen [Motrin 800 MG tab] 800 mg PO Q8HR PRN #30 tablet PRN Reason: Toothache Referrals: PRIMARY CAREMD [Primary Care Provider] - 3-5 Days [facility] [Outside] - 3-5 Days [facility] [Outside] - 3-5 Days Forms: Accompanied Note, Work/School Release Form(ED) Time of Disposition: 13:36
== END 2019-01-03 14:10 | disposition home or self-care (01) ==
LOC: ED 09:48
DX: M79.644 Pain in right finger(s) (principal); G43.909 Migraine, unspecified, not intractable, without status migrainosus; J45.909 Unspecified asthma, uncomplicated; F17.200 Nicotine dependence, unspecified, uncomplicated
CPT/HCPCS: 99283